=== PATIENT | female | born 1965 | race Caucasian/White ===

== ENCOUNTER 2017-05-12 16:33 | Emergency (ER) | payer OTHER ==
[2017-05-12 19:35] LABS: ADD MAN DIFF? NO
[2017-05-12] MEDS: ONDANSETRON 4 MG INJ IV ×2 (19:37→21:01)
[2017-05-12] MEDS: PANTOPRAZOLE 40 MG INJ IV (19:37)
[2017-05-12] MEDS: ACETAMINOPHEN 325 MG TAB PO (19:37)
[2017-05-12] MEDS: LIDOCAINE/MYLANTA 40 ML BTL PO (19:37)
[2017-05-12 19:38] LABS: WHITE BLOOD COUNT 8.9 10^3/ul (4.8-10.8)
[2017-05-12 19:38] LABS: BASOPHIL # 0.1 10^3/ul (0.0-0.1); BASOPHILS % 0.7 % (0.0-2.0); EOSINOPHILS # 0.5 10^3/ul (0.0-0.5); EOSINOPHILS % 5.6 % (0.0-7.0); HEMATOCRIT 33.7 % (37.0-47.0); HEMOGLOBIN 10.6 g/dl (12.0-16.0); LYMPHOCYTES # 2.1 10^3/ul (0.8-2.9); LYMPHOCYTES % 23.8 % (15.0-51.0); MEAN CORPUSCULAR HEMOGLOBIN 27.2 pg (29.0-33.0); MEAN CORPUSCULAR HGB CONC 31.5 g/dl (32.0-37.0); MEAN CORPUSCULAR VOLUME 86.4 fl (82.0-101.0); MONOCYTE # 0.7 10^3/ul (0.3-0.9); MONOCYTES % 8.2 % (0.0-11.0); NEUTROPHIL # 5.4 10^3/ul (1.6-7.5); NEUTROPHILS % 61.1 % (39.0-77.0); PLATELET COUNT 342 10^3/UL (140-415); RED CELL DISTRIBUTION WIDTH 14.8 % (11.5-14.5)
[2017-05-12] MEDS: SOD CHLORIDE 0.9% 1,000 ML IV (19:38)
[2017-05-12 20:05] LABS: ADD UMIC YES; UR ASCORBIC ACID NEGATIVE (NEGATIVE); UR BILIRUBIN (Dip) NEGATIVE (NEGATIVE); UR BLOOD (Dip) NEGATIVE (NEGATIVE); UR CLARITY CLEAR (CLEAR); UR COLOR YELLOW (YELLOW); UR GLUCOSE (Dip) NEGATIVE (NEGATIVE); UR KETONES (Dip) NEGATIVE (NEGATIVE); UR LEUKOCYTE ESTERASE (Dip) TRACE Leu/ul (NEGATIVE); UR NITRITE (Dip) NEGATIVE (NEGATIVE); UR RBC 2 /HPF (0-5); UR SPECIFIC GRAVITY (Dip) 1.014 (1.003-1.030); UR TOTAL PROTEIN (Dip) NEGATIVE (NEGATIVE); UR UROBILINOGEN (Dip) NEGATIVE (NEGATIVE); UR WBC 4 /HPF (0-5)
[2017-05-12 20:06] LABS: ALANINE AMINOTRANSFERASE 41 IU/L (13-69); ALBUMIN 4.8 g/dl (3.3-4.9); ALBUMIN/GLOBULIN RATIO 1.26; ALKALINE PHOSPHATASE 93 IU/L (42-121); ANION GAP 19 (8-16); ASPARTATE AMINO TRANSFERASE 23 IU/L (15-46); BLOOD UREA NITROGEN 13 mg/dl (7-20); CALCIUM 9.2 mg/dl (8.4-10.2); CARBON DIOXIDE 25 mmol/L (21-31); CHLORIDE 109 mmol/L (97-110); CREATININE 0.57 mg/dl (0.44-1.00); GLUCOSE 80 mg/dl (70-220); LIPASE 205 U/L (23-300); POTASSIUM 3.5 mmol/L (3.5-5.1); SODIUM 149 mmol/L (135-144); TOTAL PROTEIN 8.6 g/dl (6.1-8.1)
[2017-05-12 20:17] LABS: TROPONIN-I < 0.012 ng/ml (0.00-0.12)
[2017-05-12] MEDS: morphine 4 MG/ML VIAL IV (21:01)
[2017-05-12 21:16] LABS: INR 0.95; PROTIME 12.8 Sec (11.9-14.9)
[2017-05-12 21:17] LABS: PARTIAL THROMBOPLASTIN TIME 29.2 Sec (25.0-35.0)
== END 2017-05-12 22:08 | disposition home or self-care (01) ==
LOC: FTE 16:33
DX: R10.13 Epigastric pain (principal); I10 Essential (primary) hypertension; F17.210 Nicotine dependence, cigarettes, uncomplicated
CPT/HCPCS: 36415; 74176; 76705; 80053; 81001; 81025; 83690; 84484; 85025; 85610; 85730; 86850; 86900; 86901; 96374; 96375; 96376; 99285-25

== ENCOUNTER 2017-08-19 20:25 | Emergency (ER) | payer OTHER ==
[2017-08-19 21:20] LABS: URINE BLOOD (Dip) POC Negative (NEGATIVE); URINE GLUCOSE (Dip) POC Negative (NEGATIVE); URINE KETONES (Dip) POC Negative (NEGATIVE); URINE LEUKOCYTE EST (Dip) POC 1+ (NEGATIVE); URINE NITRITE (Dip) POC Negative (NEGATIVE); URINE TOTAL PROTEIN POC Negative (NEGATIVE)
[2017-08-19] MEDS: SOD CHLORIDE 0.9% 500 ML IV (22:08)
[2017-08-19] MEDS: LIDOCAINE/MYLANTA 40 ML BTL PO (22:08)
[2017-08-19 22:10] LABS: ADD MAN DIFF? NO
[2017-08-19] MEDS: ONDANSETRON 4 MG INJ IV (22:10)
[2017-08-19] MEDS: FAMOTIDINE 20 MG INJ IV (22:10)
[2017-08-19] MEDS: KETOROLAC 15 MG INJ IV (22:10)
[2017-08-19 22:12] LABS: BASOPHIL # 0.1 10^3/ul (0.0-0.1); BASOPHILS % 1.7 % (0.0-2.0); EOSINOPHILS # 0.7 10^3/ul (0.0-0.5); EOSINOPHILS % 11.3 % (0.0-7.0); LYMPHOCYTES # 2.1 10^3/ul (0.8-2.9); LYMPHOCYTES % 34.1 % (15.0-51.0); MEAN CORPUSCULAR HGB CONC 31.4 g/dl (32.0-37.0); MEAN CORPUSCULAR VOLUME 89.1 fl (82.0-101.0); MEAN PLATELET VOLUME 9.4 fl (7.4-10.4); MONOCYTE # 0.4 10^3/ul (0.3-0.9); MONOCYTES % 6.8 % (0.0-11.0); NEUTROPHIL # 2.8 10^3/ul (1.6-7.5); NEUTROPHILS % 45.9 % (39.0-77.0); PLATELET COUNT 357 10^3/UL (140-415); RED BLOOD COUNT 3.93 10^6/ul (4.20-5.40); RED CELL DISTRIBUTION WIDTH 21.7 % (11.5-14.5)
[2017-08-19 22:35] LABS: ADD UMIC YES; UR ASCORBIC ACID NEGATIVE (NEGATIVE); UR BACTERIA FEW /HPF (NONE SEEN); UR BILIRUBIN (Dip) NEGATIVE (NEGATIVE); UR BLOOD (Dip) NEGATIVE (NEGATIVE); UR CLARITY CLOUDY (CLEAR); UR COLOR YELLOW (YELLOW); UR GLUCOSE (Dip) NEGATIVE (NEGATIVE); UR KETONES (Dip) NEGATIVE (NEGATIVE); UR LEUKOCYTE ESTERASE (Dip) 3+ Leu/ul (NEGATIVE); UR MUCUS FEW /HPF (NONE SEEN); UR NITRITE (Dip) NEGATIVE (NEGATIVE); UR NONSQUAMOUS EPITHELIAL CELL 5 /HPF (NONE SEEN); UR RBC > 182 /HPF (0-5); UR SPECIFIC GRAVITY (Dip) 1.019 (1.003-1.030); UR SQUAMOUS EPITHELIAL CELL MODERATE /HPF (FEW); UR TOTAL PROTEIN (Dip) NEGATIVE (NEGATIVE); UR UROBILINOGEN (Dip) NEGATIVE (NEGATIVE); UR WBC 77 /HPF (0-5)
[2017-08-19 23:09] LABS: ALANINE AMINOTRANSFERASE 19 IU/L (13-69); ALBUMIN 4.4 g/dl (3.3-4.9); ALBUMIN/GLOBULIN RATIO 1.46; ALKALINE PHOSPHATASE 70 IU/L (42-121); ANION GAP 15 (8-16); ASPARTATE AMINO TRANSFERASE 23 IU/L (15-46); BLOOD UREA NITROGEN 13 mg/dl (7-20); CARBON DIOXIDE 24 mmol/L (21-31); CHLORIDE 110 mmol/L (97-110); GLUCOSE 107 mg/dl (70-220); LIPASE 266 U/L (23-300); POTASSIUM 3.6 mmol/L (3.5-5.1); SODIUM 145 mmol/L (135-144); TOTAL PROTEIN 7.4 g/dl (6.1-8.1)
[2017-08-19] MEDS: ONDANSETRON (ODT) 4 MG TAB ODT (23:16)
[2017-08-19] MEDS: HYDROCODONE/APAP (10/325) TAB PO (23:16)
== END 2017-08-20 00:06 | disposition home or self-care (01) ==
LOC: E/R 08-20 00:06
DX: B37.3 Candidiasis of vulva and vagina (principal); N83.201 Unspecified ovarian cyst, right side; N30.00 Acute cystitis without hematuria; I10 Essential (primary) hypertension; F17.210 Nicotine dependence, cigarettes, uncomplicated
CPT/HCPCS: 76830; 76856; 80053; 81001; 81003; 81025; 82962; 83690; 85025; 96374; 96375; 99285-25

== ENCOUNTER 2017-10-19 15:15 | Emergency (ER) | payer OTHER ==
[2017-10-19 15:42] LABS: ADD MAN DIFF? NO
[2017-10-19 15:43] LABS: WHITE BLOOD COUNT 6.6 10^3/ul (4.8-10.8)
[2017-10-19 15:43] LABS: BASOPHIL # 0.1 10^3/ul (0.0-0.1); BASOPHILS % 1.1 % (0.0-2.0); EOSINOPHILS # 0.6 10^3/ul (0.0-0.5); EOSINOPHILS % 8.4 % (0.0-7.0); HEMATOCRIT 39.9 % (37.0-47.0); HEMOGLOBIN 12.9 g/dl (12.0-16.0); LYMPHOCYTES # 1.8 10^3/ul (0.8-2.9); LYMPHOCYTES % 27.2 % (15.0-51.0); MEAN CORPUSCULAR HEMOGLOBIN 30.8 pg (29.0-33.0); MEAN CORPUSCULAR HGB CONC 32.3 g/dl (32.0-37.0); MEAN CORPUSCULAR VOLUME 95.2 fl (82.0-101.0); MEAN PLATELET VOLUME 8.9 fl (7.4-10.4); MONOCYTE # 0.5 10^3/ul (0.3-0.9); NEUTROPHIL # 3.7 10^3/ul (1.6-7.5); PLATELET COUNT 281 10^3/UL (140-415); RED BLOOD COUNT 4.19 10^6/ul (4.20-5.40); RED CELL DISTRIBUTION WIDTH 15.4 % (11.5-14.5)
[2017-10-19] MEDS: morphine 2 MG INJ IV (15:55)
[2017-10-19] MEDS: SOD CHLORIDE 0.9% 1,000 ML IV (15:55)
[2017-10-19] MEDS: ONDANSETRON 4 MG INJ IV (15:55)
[2017-10-19 16:01] LABS: ALANINE AMINOTRANSFERASE 37 IU/L (13-69); ALBUMIN 4.3 g/dl (3.3-4.9); ALKALINE PHOSPHATASE 98 IU/L (42-121); ANION GAP 13 (8-16); ASPARTATE AMINO TRANSFERASE 30 IU/L (15-46); BILIRUBIN,INDIRECT 0.2 mg/dl (0-1.1); BILIRUBIN,TOTAL 0.2 mg/dl (0.2-1.3); BLOOD UREA NITROGEN 17 mg/dl (7-20); CALCIUM 9.4 mg/dl (8.4-10.2); CARBON DIOXIDE 24 mmol/L (21-31); CHLORIDE 109 mmol/L (97-110); CREATININE 0.54 mg/dl (0.44-1.00); GLUCOSE 114 mg/dl (70-220); SODIUM 142 mmol/L (135-144); TOTAL PROTEIN 7.7 g/dl (6.1-8.1)
[2017-10-19 16:03] LABS: INR 0.82; PROTIME 11.3 Sec (11.9-14.9); PT RATIO 0.9
[2017-10-19 16:04] LABS: PARTIAL THROMBOPLASTIN TIME 30.5 Sec (25.0-35.0)
[2017-10-19] MEDS: IOHEXOL 300MG/ML 150 ML BTL (16:04)
[2017-10-19] MEDS: SOD CHLORIDE 0.9% 100 ML (16:04)
[2017-10-19 16:05] LABS: ETHANOL < 10.0 mg/dl
[2017-10-19 16:12] LABS: TROPONIN-I < 0.012 ng/ml (0.000-0.120)
[2017-10-19 17:03] LABS: AMPHETAMINE/METHAMPHETAMINE Negative (NEGATIVE); BARBITURATES Negative (NEGATIVE); BENZODIAZEPINES Positive (NEGATIVE); CANNABINOIDS Negative (NEGATIVE); COCAINE Negative (NEGATIVE); OPIATES Positive (NEGATIVE)
== END 2017-10-19 18:25 | disposition home or self-care (01) ==
LOC: E/R 15:15
DX: R51 Headache (principal); R11.0 Nausea; M54.5 Low back pain; I10 Essential (primary) hypertension; F17.210 Nicotine dependence, cigarettes, uncomplicated; R10.9 Unspecified abdominal pain; E11.9 Type 2 diabetes mellitus without complications
CPT/HCPCS: 70450; 71260; 72125; 74177; 80048; 80076; 80307; 81025; 84484; 85025; 85610; 85730; 96374; 96375; 99285-25

== ENCOUNTER 2018-06-21 09:50 | Emergency (ER) | payer OTHER ==
[2018-06-21] MEDS: SOD CHLORIDE 0.9% 1,000 ML IV (11:18)
[2018-06-21] MEDS: ONDANSETRON 4 MG INJ IV (11:18)
[2018-06-21 11:33] LABS: ADD MAN DIFF? NO
[2018-06-21 11:36] LABS: WHITE BLOOD COUNT 5.2 10^3/ul (4.8-10.8)
[2018-06-21 11:36] LABS: BASOPHIL # 0.1 10^3/ul (0.0-0.1); EOSINOPHILS # 0.7 10^3/ul (0.0-0.5); EOSINOPHILS % 13.2 % (0.0-7.0); HEMATOCRIT 28.3 % (37.0-47.0); HEMOGLOBIN 8.9 g/dl (12.0-16.0); LYMPHOCYTES # 1.8 10^3/ul (0.8-2.9); LYMPHOCYTES % 34.2 % (15.0-51.0); MEAN CORPUSCULAR HEMOGLOBIN 30.9 pg (29.0-33.0); MEAN CORPUSCULAR HGB CONC 31.4 g/dl (32.0-37.0); MEAN CORPUSCULAR VOLUME 98.3 fl (82.0-101.0); MONOCYTE # 0.4 10^3/ul (0.3-0.9); MONOCYTES % 7.4 % (0.0-11.0); NEUTROPHIL # 2.2 10^3/ul (1.6-7.5); NEUTROPHILS % 43.2 % (39.0-77.0); PLATELET COUNT 348 10^3/UL (140-415); RED BLOOD COUNT 2.88 10^6/ul (4.20-5.40); RED CELL DISTRIBUTION WIDTH 12.4 % (11.5-14.5)
[2018-06-21] MEDS: LACTATED RINGER'S 1,000 ML IV (11:52)
[2018-06-21 11:58] LABS: ALANINE AMINOTRANSFERASE 11 IU/L (13-69); ALBUMIN 5.1 g/dl (3.3-4.9); ALBUMIN/GLOBULIN RATIO 1.18; ALKALINE PHOSPHATASE 95 IU/L (42-121); ANION GAP 16 (5-13); ASPARTATE AMINO TRANSFERASE 26 IU/L (15-46); BILIRUBIN,INDIRECT 0.2 mg/dl (0-1.1); BILIRUBIN,TOTAL 0.2 mg/dl (0.2-1.3); BLOOD UREA NITROGEN 35 mg/dl (7-20); CARBON DIOXIDE 19 mmol/L (21-31); CHLORIDE 109 mmol/L (97-110); CREATININE 1.49 mg/dl (0.44-1.00); Estimated GFR 37 mL/min (>60); GLUCOSE 146 mg/dl (70-220); LIPASE 365 U/L (23-300); POTASSIUM 4.6 mmol/L (3.5-5.1); SODIUM 144 mmol/L (135-144); TOTAL PROTEIN 9.4 g/dl (6.1-8.1)
[2018-06-21 12:38] LABS: ADD UMIC YES; UR ASCORBIC ACID NEGATIVE (NEGATIVE); UR BILIRUBIN (Dip) NEGATIVE (NEGATIVE); UR BLOOD (Dip) NEGATIVE (NEGATIVE); UR CLARITY CLEAR (CLEAR); UR COLOR COLORLESS (YELLOW); UR GLUCOSE (Dip) 1+ mg/dL (NEGATIVE); UR KETONES (Dip) NEGATIVE (NEGATIVE); UR LEUKOCYTE ESTERASE (Dip) TRACE Leu/ul (NEGATIVE); UR NITRITE (Dip) NEGATIVE (NEGATIVE); UR RBC 2 /HPF (0-5); UR SPECIFIC GRAVITY (Dip) 1.004 (1.003-1.030); UR SQUAMOUS EPITHELIAL CELL FEW /HPF (FEW); UR TOTAL PROTEIN (Dip) NEGATIVE (NEGATIVE); UR UROBILINOGEN (Dip) NEGATIVE (NEGATIVE); UR WBC 2 /HPF (0-5)
== END 2018-06-21 14:22 | disposition home or self-care (01) ==
LOC: E/R 09:50
DX: N39.0 Urinary tract infection, site not specified (principal); E86.0 Dehydration; N83.201 Unspecified ovarian cyst, right side; I10 Essential (primary) hypertension; E11.9 Type 2 diabetes mellitus without complications; Z79.84 Long term (current) use of oral hypoglycemic drugs; Z87.891 Personal history of nicotine dependence
CPT/HCPCS: 36415; 74176; 80053; 81001; 83690; 85025; 87086; 96361; 96374; 99285-25